=== PATIENT | male | born 1950 | race Caucasian/White ===

== ENCOUNTER → 2017-01-16 09:06 | Outpatient (CLI) | payer MEDICARE, OTHER ==
[2014-11-17 08:18] VITALS: BMI 31.2
[~2017-01-16 09:06] MED LIST: BAYER CHEWABLE81 MG PO; CORGARD40 MG PO; HCTZ25 MG PO; LOTREL 5-40 MG1 EACH PO; LOTREL 5/20 MG1 CAP; PLAVIX75 MG PO; PROTONIX40 MG PO
[2017-01-17 09:13] LABS: IMMUNOGLOBULIN E 40 IU/mL (0-100)
== END | disposition home or self-care (01) ==
LOC: D.RT 09:06
PROVIDERS: Internal Medicine Pulmonary Disease
DX: J44.9 Chronic obstructive pulmonary disease, unspecified (principal)

== ENCOUNTER → 2019-06-01 08:25 | Outpatient (CLI) | payer MEDICARE, BC ==
[2014-11-17 08:18] VITALS: BMI 31.2
== END | disposition home or self-care (01) ==
LOC: D.MRI 08:25
PROVIDERS: ATTEND Internal Medicine Medical Oncology
DX: C43.62 Malignant melanoma of left upper limb, including shoulder (principal)